=== PATIENT | male | born 1960 | race Caucasian/White ===

== ENCOUNTER 2018-10-23 23:11 | Emergency (ER) | payer OTHER ==
[~2018-10-23] VITALS: Ht 177.8 cm; Wt 86.0 kg
[2018-10-23] MEDS ORDERED: LORazepam 2 MG/ML, 1ML IVPush ONE (23:30)
[2018-10-23] MEDS ORDERED: SODIUM CHLORIDE FLUSH 10ML SYR IVF ONE (23:30)
[2018-10-23] MEDS ORDERED: LIDOCAINE-MPF 1%, 5ML INFIL ONE (23:30)
[2018-10-23] MEDS ORDERED: ONDANSETRON 2MG/ML, 2ML IVPush ONE (23:30)
[2018-10-23] MEDS ORDERED: AMLODIPINE PO (23:40)
[2018-10-23] MEDS ORDERED: ALLOPURINOL PO (23:40)
[2018-10-23] MEDS ORDERED: LISINOPRIL PO (23:40)
[2018-10-23] MEDS ORDERED: LORazepam 2 MG/ML, 1ML ONE (23:44)
[2018-10-23] MEDS ORDERED: ONDANSETRON 2MG/ML, 2ML ONE (23:44)
[2018-10-23] MEDS ORDERED: LIDOCAINE-MPF 1%, 5ML ONE (23:44)
[2018-10-24 00:17] LABS: BASOPHILS # (AUTO) 0.06 x10^3/uL (0-0.1); BASOPHILS % (AUTO) 1 % (0-1); EOSINOPHILS # (AUTO) 0.09 x10^3/uL (0-0.4); EOSINOPHILS % (AUTO) 1 % (1-7); LYMPHOCYTES # (AUTO) 1.82 x10^3/uL (1-3.4); LYMPHOCYTES % (AUTO) 26 % (22-44); MD NO; MEAN CORPUSCULAR HGB CONC 34.7 g/dL (33.2-36.2); MEAN PLATELET VOLUME 7.5 fL (7.4-10.4); MONOCYTES # (AUTO) 0.54 x10^3/uL (0.2-0.8); MONOCYTES % (AUTO) 8 % (2-9); NEUTROPHILS # (AUTO) 4.61 x10^3/uL (1.8-6.8); NEUTROPHILS % (AUTO) 65 % (42-75); PLATELET COUNT 219 x10^3/uL (130-400); RED BLOOD COUNT 5.29 x10^6/uL (4.38-5.82); RED CELL DISTRIBUTION WIDTH 12.4 % (9.4-14.8)
[2018-10-24 00:26] LABS: ALBUMIN 3.8 g/dL (3.4-5.0); ANION GAP 6 mmol/L (5-15); CALCIUM 8.4 mg/dL (8.5-10.1); CHLORIDE 115 mmol/L (98-107); CREATININE 0.85 mg/dL (0.7-1.3)
[2018-10-24] MEDS ORDERED: LORazepam 2 MG/ML, 1ML ONE (00:29)
[2018-10-24] MEDS ORDERED: LIDOCAINE 1%-EPI 1:100K, 30ML ONE (00:29)
[2018-10-24] MEDS ORDERED: LORazepam 2 MG/ML, 1ML IVPush ONE (00:30)
--- NOTE | 2018-10-24 00:31 | NUR ---
PT BEING SUTURED AT THIS TIME. PT MEDICATED FOR AGITATION. ALL SCANS RESULTED. PT BECOMING MORE CLEAR AT THIS TIME. FAMILY REMAINS AT BEDSIDE.
--- NOTE | 2018-10-24 00:50 | NUR ---
REPORT TO CARLOS TAYLOR
--- NOTE | 2018-10-24 01:17 | NUR ---
ATTEMPTED TO HELP PT WITH URINAL AT BEDSIDE. PT IS VERY UNSTEADY. STATES UNABLE TO USE URINAL AND WANTS TO USE BR. WILL ATTEMPT TO TAKE PT TO BR WITH W/C WHEN ABLE. PT AGREES TO POC. FAMITY AT BEDSIDE.
--- NOTE | 2018-10-24 01:45 | NUR ---
ASSISTED PT TO BR VIA W/C. PT REQUESTING TO WALK BACK. PT ABLE TO AMBULATE WITH MINIMAL ASSIST. DISCUSSED POC WITH FAMILY. FAMILY REQUESTING TO LET PT SLEEP FOR A LITTLE BIT AND THEN THEY WILL TAKE PT HOME. PT UP FOR D/C WHEN ABLE--FAMILY AWARE TO NOTIFY RN WHEN THEY ARE READY TO TAKE PT HOME. VSS. CALL LIGHT IN REACH.
[2018-10-24 02:51] VITALS: BP 124/75
== END 2018-10-24 02:54 | disposition home or self-care (01) ==
LOC: ED 23:51
DX: S06.0X0A Concussion without loss of consciousness, initial encounter (principal); S01.81XA Laceration without foreign body of other part of head, initial encounter; M54.6 Pain in thoracic spine; M54.2 Cervicalgia; I10 Essential (primary) hypertension; F10.220 Alcohol dependence with intoxication, uncomplicated; W01.198A Fall on same level from slipping, tripping and stumbling with subsequent striking against other object, initial encounter; Y93.89 Activity, other specified; Y92.009 Unspecified place in unspecified non-institutional (private) residence as the place of occurrence of the external cause; Y99.8 Other external cause status
CPT/HCPCS: 12032; 36415; 70450; 71045; 72072; 72125; 80048; 80307; 82040; 85025; 93005; 96374; 96375; 96376; 99284; J2060; J2405

== ENCOUNTER 2019-06-15 07:44 | Outpatient (CLI) | payer OTHER ==
[~2019-06-15 07:44] MED LIST: ALLOPURINOL PO; AMLODIPINE PO; LISINOPRIL PO; MULT-252 PO
[2019-06-15 09:09] LABS: BASOPHILS # (AUTO) 0.05 x10^3/uL (0-0.1); BASOPHILS % (AUTO) 1 % (0-1); EOSINOPHILS # (AUTO) 0.06 x10^3/uL (0-0.4); EOSINOPHILS % (AUTO) 1 % (1-7); LYMPHOCYTES # (AUTO) 1.36 x10^3/uL (1-3.4); LYMPHOCYTES % (AUTO) 25 % (22-44); MD NO; MEAN CORPUSCULAR HEMOGLOBIN 32.3 pg (27.5-34.5); MEAN CORPUSCULAR HGB CONC 33.3 g/dL (33.2-36.2); MEAN PLATELET VOLUME 7.3 fL (7.4-10.4); MONOCYTES # (AUTO) 0.54 x10^3/uL (0.2-0.8); MONOCYTES % (AUTO) 10 % (2-9); NEUTROPHILS # (AUTO) 3.52 x10^3/uL (1.8-6.8); NEUTROPHILS % (AUTO) 64 % (42-75); PLATELET COUNT 227 x10^3/uL (130-400); RED BLOOD COUNT 5.53 x10^6/uL (4.38-5.82)
[2019-06-15 09:14] LABS: ALANINE AMINOTRANSFERASE 45 U/L (12-78); CALCIUM 8.9 mg/dL (8.5-10.1)
[2019-06-15 09:19] LABS: ALKALINE PHOSPHATASE 76 U/L (45-117); ANION GAP 6 mmol/L (5-15); BILIRUBIN,TOTAL 1.8 mg/dL (0.2-1.0); CHLORIDE 106 mmol/L (98-107); CREATININE 0.96 mg/dL (0.7-1.3); TOTAL PROTEIN 7.8 g/dL (6.4-8.2)
== END 2019-06-15 23:59 | disposition home or self-care (01) ==
LOC: STAR 07:44
PROVIDERS: ATTEND Surgery
DX: Z01.818 Encounter for other preprocedural examination (principal); I10 Essential (primary) hypertension; R94.31 Abnormal electrocardiogram [ECG] [EKG]
CPT/HCPCS: 36415; 71046; 80053; 82378; 85025; 93005

== ENCOUNTER 2020-07-11 10:52 | Emergency (ER) | payer OTHER ==
[~2020-07-11] VITALS: Ht 172.7 cm; Wt 90.0 kg
[~2020-07-11 10:52] MED LIST changes: +OXYC-302 PO
--- NOTE | 2020-07-11 10:55 | NUR ---
BIBA FROM WORK FOR SUDDEN NOSE BLEED ONSET 30 MIN AGO. REPORTS HX OF HTN.
--- NOTE | 2020-07-11 11:25 | NUR ---
PT SUDDENDLY C/O SOB STATING "I CAN'T BREATHE, SOMETHINGS NOT RIGHT" PT HOLDING LEFT UPPER CHEST. TRANSFERRED TO ROOM 31, EKG DONE, PT PLACED ON CONTINOUS VITALS AND CARDIAC MONITORS.
--- NOTE | 2020-07-11 11:33 | NUR ---
BEDSIDE REPORT TO KELVIN TAYLOR. SAJI LINDSAY AT BEDSIDE FOR EVAL.
[2020-07-11 11:52] LABS: EOSINOPHILS % (AUTO) 1 % (1-7); MEAN CORPUSCULAR HEMOGLOBIN 32.6 pg (27.5-34.5)
[2020-07-11 11:59] LABS: BASOPHILS % (AUTO) 1 % (0-1); LYMPHOCYTES % (AUTO) 24 % (22-44); MEAN CORPUSCULAR HGB CONC 34.2 g/dL (33.2-36.2); MEAN PLATELET VOLUME 7.8 fL (7.4-10.4); MONOCYTES % (AUTO) 11 % (2-9); NEUTROPHILS % (AUTO) 64 % (42-75); PLATELET COUNT 219 x10^3/uL (130-400); RED BLOOD COUNT 5.52 x10^6/uL (4.38-5.82); RED CELL DISTRIBUTION WIDTH 12.4 % (9.4-14.8)
[2020-07-11] MEDS ORDERED: TRANEXAMIC ACID 100 MG/ML, 10ML TP ONE (12:00)
[2020-07-11] MEDS ORDERED: OXYMETAZOLINE NASAL SPRAY 0.05%, 15ML NAS ONE (12:00)
[2020-07-11 12:02] LABS: MD NO
[2020-07-11 12:04] LABS: ANION GAP 5 mmol/L (5-15); CALCIUM 9.2 mg/dL (8.5-10.1); CHLORIDE 109 mmol/L (98-107)
[2020-07-11] MEDS ORDERED: OXYMETAZOLINE NASAL SPRAY 0.05%,30ML ONE (12:05)
[2020-07-11] MEDS ORDERED: TRANEXAMIC ACID 100 MG/ML, 10ML ONE (12:05)
[2020-07-11 12:11] LABS: ALANINE AMINOTRANSFERASE 144 U/L (12-78); ALKALINE PHOSPHATASE 114 U/L (45-117); BILIRUBIN,TOTAL 1.5 mg/dL (0.2-1.0); CREATININE 1.03 mg/dL (0.7-1.3); TOTAL PROTEIN 8.2 g/dL (6.4-8.2); TROPONIN I < 0.015 ng/mL (0.000-0.045)
[2020-07-11 12:36] VITALS: BP 149/78
== END 2020-07-11 13:41 | disposition home or self-care (01) ==
LOC: ED 13:30
DX: R04.0 Epistaxis (principal); F41.0 Panic disorder [episodic paroxysmal anxiety]; R51.9 Headache, unspecified; R07.9 Chest pain, unspecified; R00.0 Tachycardia, unspecified; I10 Essential (primary) hypertension
CPT/HCPCS: 36415; 70450; 71045; 80053; 80307; 84484; 85025; 93005; 99285

== ENCOUNTER 2020-07-15 10:05 | Emergency (ER) | payer OTHER ==
[~2020-07-15] VITALS: Ht 170.2 cm; Wt 90.1 kg
[2020-07-15 10:14] VITALS: BP 197/118
[2020-07-15] MEDS ORDERED: TRANEXAMIC ACID 100 MG/ML, 10ML TP ONE (10:30)
[2020-07-15] MEDS ORDERED: OXYMETAZOLINE NASAL SPRAY 0.05%, 15ML NAS ONE (10:30)
[2020-07-15] MEDS ORDERED: OXYMETAZOLINE NASAL SPRAY 0.05%,30ML ONE (10:50)
[2020-07-15] MEDS ORDERED: TRANEXAMIC ACID 100 MG/ML, 10ML ONE (10:51)
[2020-07-15] MEDS ORDERED: SILVER NITRATE STICK TP ONE (11:29)
== END 2020-07-15 12:01 | disposition home or self-care (01) ==
LOC: ED 11:51
DX: R04.0 Epistaxis (principal); I10 Essential (primary) hypertension
CPT/HCPCS: 30901; 99284